=== PATIENT | female | born 1995 ===

== ENCOUNTER 2025-05-04 09:46 | Outpatient (CLI) | payer MEDICAID ==
[2025-05-04] VITALS (16 sets, daily range): BP systolic 46–139; BP diastolic 33–94; PULSE 79–124
== END 2025-05-04 23:59 | disposition home or self-care (01) ==
LOC: CARD DIAG 09:46
PROVIDERS: ATTEND Internal Medicine Cardiovascular Disease
DX: G90.89 Other disorders of autonomic nervous system (principal); I95.9 Hypotension, unspecified; R55 Syncope and collapse
CPT/HCPCS: 93660